=== PATIENT | male | born 1960 | race Two or more races ===

== ENCOUNTER 2018-11-05 16:59 | Emergency (ER) | payer MEDICAID, OTHER ==
[2018-11-05] MEDS ORDERED: AZITHROMYCIN 250 MG TABLET PO ONE (17:30)
[2018-11-05] MEDS ORDERED: CEFTRIAXONE 500 MG VIAL IM ONE (17:30)
[2018-11-05] MEDS ORDERED: AZITHROMYCIN 250 MG TABLET ONE (17:37)
[2018-11-05] MEDS ORDERED: CEFTRIAXONE 500 MG VIAL ONE (17:37)
[2018-11-05] MEDS ORDERED: LIDOCAINE /MPF 1% VIAL 5 ML VIAL ONE (17:38)
== END 2018-11-05 18:34 | disposition home or self-care (01) ==
DX: Z20.2 Contact with and (suspected) exposure to infections with a predominantly sexual mode of transmission (principal); Z90.89 Acquired absence of other organs
CPT/HCPCS: 87491; 87591; 96372; 99283; J0696; J3490